=== PATIENT | male | born 1945 | race Caucasian/White ===

== ENCOUNTER 2020-06-14 23:21 | Inpatient (IN) | payer MEDICARE, OTHER ==
[~2020-06-14] VITALS: Ht 182.9 cm; Wt 114.9 kg
[~2020-06-14 23:21] MED LIST: ALDACTONE25 MG PO; AMIODARONE HCL200 MG PO; BENICAR40 MG PO; COUMADIN3 MG PO; ECOTRIN81 MG PO; ELIQUIS5 MG PO; GLIPIZIDE-METF1 EAC2 PO; GLUCOPHAGE500 MG PO; GLUCOTROL5 MG PO; HUMALOG100 UNIT/1 SC; HYDROCHLOROTHIA25 MG PO; IMDUR ER TAB 6060 MG PO; LASIX40 MG PO; LIPITOR40 MG PO; LORTAB 7.5-3251 EACH PO; NIFEREX 150 MG150 MG PO; NORCO 7.5-3251 EACH PO; NORVASC 5 MG TAB5 MG PO; PROTONIX40 MG PO; TOPROL XL100 MG PO; TOUJEO MAX300 UNIT/1 SC; ZYLOPRIM 100 M100 MG PO
[2020-06-15 00:08] LABS: HEMOGLOBIN 11.2 gm/dl (14.0-17.5); RED BLOOD COUNT 5.2 M/UL (4.20-5.50); WHITE BLOOD COUNT 14.1 K/UL (4.5-11.0)
[2020-06-15 00:31] LABS: BUN/CREATININE RATIO 12 (0-10)
[2020-06-15] MEDS ORDERED: LIPITOR40 MG PO (10:04)
[2020-06-15] MEDS ORDERED: OZEMPIC0.25 MG/0. SQ (10:10)
[2020-06-16 04:36] LABS: HEMOGLOBIN 10.7 gm/dl (14.0-17.5); RED BLOOD COUNT 5.07 M/UL (4.20-5.50)
[2020-06-16 04:43] LABS: WHITE BLOOD COUNT 10.4 K/UL (4.5-11.0)
[2020-06-16 05:02] LABS: BUN/CREATININE RATIO 16 (0-10)
[2020-06-17 05:55] LABS: BUN/CREATININE RATIO 21 (0-10)
[2020-06-18 04:46] LABS: HEMOGLOBIN 10.1 gm/dl (14.0-17.5); RED BLOOD COUNT 4.79 M/UL (4.20-5.50); WHITE BLOOD COUNT 8.9 K/UL (4.5-11.0)
[2020-06-19 05:39] LABS: RED BLOOD COUNT 4.75 M/UL (4.20-5.50); WHITE BLOOD COUNT 9.6 K/UL (4.5-11.0)
[2020-06-19 05:53] LABS: BUN/CREATININE RATIO 25 (0-10)
[2020-06-20 06:06] LABS: BUN/CREATININE RATIO 27 (0-10)
[2020-06-23 06:45] LABS: BUN/CREATININE RATIO 21 (0-10)
--- NOTE | 2020-06-23 21:57 | NUR ---
PT AGITATED TRYING TO CLIMB OUT OF BED, CALLED DR SMYTH, DR SMYTH ORDERED SITTER AT BEDSIDE. PROFESSOR OF INDUSTRIAL TECHNOLOGY DANIS NOTIFIED
[2020-06-24 04:45] LABS: BUN/CREATININE RATIO 21 (0-10)
[2020-06-25 04:40] LABS: BUN/CREATININE RATIO 20 (0-10)
[2020-06-26] MEDS ORDERED: IPRAT-ALBUT 0.5-3 ML NEB (11:40)
[2020-06-26] MEDS ORDERED: FAMOTIDINE20 MG PO (11:40)
== END 2020-06-26 20:52 | DRG 291 ==
LOC: ER1 23:21 → CDU 06-15 01:54 → MED SURG 4 06-15 01:54
PROVIDERS: Student in an Organized Health Care Education/Training Program; ADMIT Internal Medicine
PROC: B24BZZ4 Ultrasonography of Heart with Aorta, Transesophageal (ICD-10-PCS; principal; 2020-06-15)
DX: I13.0 Hypertensive heart and chronic kidney disease with heart failure and stage 1 through stage 4 chronic kidney disease, or unspecified chronic kidney disease (principal); J96.01 Acute respiratory failure with hypoxia; J18.9 Pneumonia, unspecified organism; R53.2 Functional quadriplegia; I50.23 Acute on chronic systolic (congestive) heart failure; I48.20 Chronic atrial fibrillation, unspecified; F05 Delirium due to known physiological condition; N17.9 Acute kidney failure, unspecified; Z20.822 Contact with and (suspected) exposure to COVID-19; N18.2 Chronic kidney disease, stage 2 (mild); D64.9 Anemia, unspecified; E11.40 Type 2 diabetes mellitus with diabetic neuropathy, unspecified; R29.6 Repeated falls; E87.6 Hypokalemia; T50.2X5A Adverse effect of carbonic-anhydrase inhibitors, benzothiadiazides and other diuretics, initial encounter; W18.30XA Fall on same level, unspecified, initial encounter; I08.2 Rheumatic disorders of both aortic and tricuspid valves; E66.9 Obesity, unspecified; R27.0 Ataxia, unspecified; M47.896 Other spondylosis, lumbar region; F01.50 Vascular dementia, unspecified severity, without behavioral disturbance, psychotic disturbance, mood disturbance, and anxiety; E78.5 Hyperlipidemia, unspecified; I25.10 Atherosclerotic heart disease of native coronary artery without angina pectoris; Z95.1 Presence of aortocoronary bypass graft; Z74.01 Bed confinement status; Z79.4 Long term (current) use of insulin; Z79.01 Long term (current) use of anticoagulants; Z86.711 Personal history of pulmonary embolism; Z90.49 Acquired absence of other specified parts of digestive tract; Z95.0 Presence of cardiac pacemaker; Z86.718 Personal history of other venous thrombosis and embolism; Z68.36 Body mass index [BMI] 36.0-36.9, adult
CPT/HCPCS: ECHO; 0240U; 36415; 36600; 70450; 71045; 80048; 80053; 81001; 82140; 82550; 82553; 82607; 82746; 82803; 82962; 83036; 83605; 83690; 83735; 83874; 83880; 84100; 84132; 84443; 84484; 85025; 85027; 85610; 85730; 86140; 87040; 93005; 93306; 94640; 94664; 94760; 96374; 97110; 97110-GP-CQ; 97162; 97166; 97530; 97530-GP-CQ; 99285; J0696; J1940; U0002

== ENCOUNTER 2020-10-31 15:28 | Emergency (ER) | payer MEDICARE ==
[~2020-10-31 15:28] MED LIST changes: +FAMOTIDINE20 MG PO; +IPRAT-ALBUT 0.5-3 ML NEB; +OZEMPIC0.25 MG/0. SQ
[2020-10-31 16:35] LABS: HEMOGLOBIN 10.3 gm/dl (14.0-17.5); RED BLOOD COUNT 4.76 M/UL (4.20-5.50)
[2020-10-31 16:58] LABS: BUN/CREATININE RATIO 14 (0-10)
[2020-10-31] MEDS ORDERED: KEPPRA500 MG PO (19:54)
[2020-10-31] MEDS ORDERED: CEFUROXIME500 MG PO (19:54)
== END 2020-10-31 21:13 | disposition home or self-care (01) ==
LOC: ER1 15:28
PROVIDERS: Physician Assistant
DX: R41.82 Altered mental status, unspecified (principal); R09.02 Hypoxemia; N39.0 Urinary tract infection, site not specified; E78.5 Hyperlipidemia, unspecified; E11.9 Type 2 diabetes mellitus without complications; I48.91 Unspecified atrial fibrillation; Z86.711 Personal history of pulmonary embolism; Z86.718 Personal history of other venous thrombosis and embolism; I11.0 Hypertensive heart disease with heart failure; I50.9 Heart failure, unspecified; Z79.01 Long term (current) use of anticoagulants; Z20.822 Contact with and (suspected) exposure to COVID-19
CPT/HCPCS: 36600; 70450; 71045; 80053; 81001; 82550; 82553; 82803; 83874; 83880; 84484; 85025; 85379; 87077; 87086; 87186; 93005; 96374; 99285; J1940; Q9967; U0002

== ENCOUNTER → 2020-11-05 | Outpatient (CLI) | payer MEDICARE ==
[~2020-11-05] MED LIST changes: +CEFUROXIME500 MG PO; +KEPPRA500 MG PO
== END ==
LOC: US 14:00
DX: M79.89 Other specified soft tissue disorders (principal); M79.605 Pain in left leg
CPT/HCPCS: 93971

== ENCOUNTER 2021-03-17 12:19 | Inpatient (IN) | payer MEDICARE ==
[~2021-03-17] VITALS: Ht 182.9 cm; Wt 68.3 kg
[~2021-03-17 12:19] MED LIST changes: +LASIX20 MG PO; -OZEMPIC0.25 MG/0. SQ; +OZEMPIC1 MG/0.71 SQ
[2021-03-17 12:57] LABS: HEMOGLOBIN 10.5 gm/dl (14.0-17.5); RED BLOOD COUNT 5.06 M/UL (4.20-5.50)
[2021-03-17 13:28] LABS: BUN/CREATININE RATIO 16 (0-10)
[2021-03-17] MEDS ORDERED: QUETIAPINE FUMA25 MG PO (17:53)
[2021-03-17] MEDS ORDERED: CLONIDINE HCL0.1 MG PO (17:54)
[2021-03-17] MEDS ORDERED: LANTUS100 UNIT/1 SQ ×2 (17:55)
[2021-03-17] MEDS ORDERED: POTASSIUM CHLO10 ME2 PO (17:55)
[2021-03-17] MEDS ORDERED: ISOSORBIDE MONO60 MG PO (19:17)
[2021-03-18 03:10] LABS: HEMOGLOBIN 11.4 gm/dl (14.0-17.5)
[2021-03-18 03:38] LABS: RED BLOOD COUNT 5.68 M/UL (4.20-5.50); WHITE BLOOD COUNT 4.6 K/UL (4.5-11.0)
[2021-03-18 04:44] LABS: BUN/CREATININE RATIO 16 (0-10)
[2021-03-19 05:56] LABS: HEMOGLOBIN 10.5 gm/dl (14.0-17.5)
[2021-03-19 05:58] LABS: RED BLOOD COUNT 5.07 M/UL (4.20-5.50); WHITE BLOOD COUNT 13.6 K/UL (4.5-11.0)
[2021-03-20 03:55] LABS: HEMOGLOBIN 10.4 gm/dl (14.0-17.5); RED BLOOD COUNT 5.01 M/UL (4.20-5.50)
[2021-03-21 03:46] LABS: HEMOGLOBIN 9.4 gm/dl (14.0-17.5); RED BLOOD COUNT 4.56 M/UL (4.20-5.50); WHITE BLOOD COUNT 10.6 K/UL (4.5-11.0)
[2021-03-22 01:56] LABS: HEMOGLOBIN 9.7 gm/dl (14.0-17.5); RED BLOOD COUNT 4.67 M/UL (4.20-5.50); WHITE BLOOD COUNT 12.6 K/UL (4.5-11.0)
[2021-03-22 02:27] LABS: BUN/CREATININE RATIO 37 (0-10)
[2021-03-23 03:23] LABS: HEMOGLOBIN 10.4 gm/dl (14.0-17.5); RED BLOOD COUNT 5.05 M/UL (4.20-5.50)
[2021-03-23 03:48] LABS: BUN/CREATININE RATIO 33 (0-10)
[2021-03-24 08:59] LABS: HEMOGLOBIN 10.4 gm/dl (14.0-17.5); RED BLOOD COUNT 5.02 M/UL (4.20-5.50)
[2021-03-24 09:22] LABS: BUN/CREATININE RATIO 25 (0-10)
[2021-03-25 03:31] LABS: HEMOGLOBIN 9.5 gm/dl (14.0-17.5); RED BLOOD COUNT 4.68 M/UL (4.20-5.50); WHITE BLOOD COUNT 10.5 K/UL (4.5-11.0)
[2021-03-25 03:57] LABS: BUN/CREATININE RATIO 25 (0-10)
[2021-03-27 04:38] LABS: HEMOGLOBIN 9.8 gm/dl (14.0-17.5); RED BLOOD COUNT 4.75 M/UL (4.20-5.50)
[2021-03-27 05:17] LABS: BUN/CREATININE RATIO 25 (0-10)
[2021-03-30 03:03] LABS: HEMOGLOBIN 9.6 gm/dl (14.0-17.5); RED BLOOD COUNT 4.57 M/UL (4.20-5.50)
[2021-03-30 03:12] LABS: WHITE BLOOD COUNT 9.5 K/UL (4.5-11.0)
[2021-03-30 03:31] LABS: BUN/CREATININE RATIO 30 (0-10)
[2021-03-31 03:04] LABS: BUN/CREATININE RATIO 33 (0-10)
== END 2021-03-31 20:00 | DRG 177 ==
LOC: ER1 12:19 → PROG CARE 16:07 → CDU 16:07 → PROG CARE 18:47
PROVIDERS: Family Medicine; Internal Medicine; ADMIT Internal Medicine
PROC: XW033E5 Introduction of Remdesivir Anti-infective into Peripheral Vein, Percutaneous Approach, New Technology Group 5 (ICD-10-PCS; principal; 2021-03-17)
PROC: 3E0333Z Introduction of Anti-inflammatory into Peripheral Vein, Percutaneous Approach (ICD-10-PCS; 2021-03-17)
PROC: 8E0ZXY6 Isolation (ICD-10-PCS; 2021-03-17)
DX: U07.1 COVID-19 (principal); J12.82 Pneumonia due to coronavirus disease 2019; J96.01 Acute respiratory failure with hypoxia; J18.9 Pneumonia, unspecified organism; I63.9 Cerebral infarction, unspecified; I50.23 Acute on chronic systolic (congestive) heart failure; N17.9 Acute kidney failure, unspecified; I47.2 Ventricular tachycardia; I13.0 Hypertensive heart and chronic kidney disease with heart failure and stage 1 through stage 4 chronic kidney disease, or unspecified chronic kidney disease; N30.00 Acute cystitis without hematuria; E11.22 Type 2 diabetes mellitus with diabetic chronic kidney disease; N18.30 Chronic kidney disease, stage 3 unspecified; E78.5 Hyperlipidemia, unspecified; I25.10 Atherosclerotic heart disease of native coronary artery without angina pectoris; M48.061 Spinal stenosis, lumbar region without neurogenic claudication; I48.91 Unspecified atrial fibrillation; F01.50 Vascular dementia, unspecified severity, without behavioral disturbance, psychotic disturbance, mood disturbance, and anxiety; M47.816 Spondylosis without myelopathy or radiculopathy, lumbar region; Z95.1 Presence of aortocoronary bypass graft; Z86.711 Personal history of pulmonary embolism; Z79.01 Long term (current) use of anticoagulants; Z95.0 Presence of cardiac pacemaker; Z82.49 Family history of ischemic heart disease and other diseases of the circulatory system; Z99.81 Dependence on supplemental oxygen; Z86.73 Personal history of transient ischemic attack (TIA), and cerebral infarction without residual deficits; Z79.4 Long term (current) use of insulin; Z66 Do not resuscitate
CPT/HCPCS: 0240U; 36415; 36600; 51702; 71045; 80048; 80053; 80076; 81001; 82550; 82553; 82803; 82962; 83605; 83735; 83874; 83880; 84484; 85025; 85027; 86140; 87040; 87077; 87086; 87186; 93005; 94640; 94664; 94760; 96374; 96375; 97110; 97110-GP-CQ; 97116; 97116-GP-CQ; 97162; 97530; 97530-GP-CQ; 99285; J0248; J1100; J1940; J2543; J7030